=== PATIENT | female | born 1990 | race Caucasian/White ===

== ENCOUNTER 2021-10-08 08:39 | Emergency (ER) | payer OTHER ==
[~2021-10-08] VITALS: Ht 170.2 cm; Wt 79.8 kg
[2021-10-08 09:44] LABS: BASO # 0.02 K/mm3 (0.02-0.10); HEMATOCRIT 41.5 % (37.0-47.0); HEMOGLOBIN 14.4 g/dL (12.5-16.0); LYMPH# 0.79 K/mm3 (1.50-4.00); MEAN CELL VOLUME 87 fl (78-100); MEAN CORPUSCULAR HEMOGLOBIN 30 pg (27-31); MEAN CORPUSCULAR HGB CONC 35 g/dL (33-37); MONO # 0.77 K/mm3 (0.20-0.80); NEU # 6.43 K/mm3 (1.40-6.50); PLATELET COUNT 232 K/mm3 (130-400); RED BLOOD COUNT 4.77 M/mm3 (4.10-5.30); RED CELL DISTRIBUTION WIDTH 12.4 % (11.5-14.5)
[2021-10-08 09:48] LABS: ALBUMIN 4.3 g/dL (3.5-5.0)
[2021-10-08 09:49] LABS: POTASSIUM 4.5 mmol/L (3.5-5.1)
[2021-10-08 09:50] LABS: CALCIUM 9.2 mg/dL (8.3-10.5)
[2021-10-08 09:53] LABS: TOTAL BILIRUBIN 1.7 mg/dL (0.2-1.2)
[2021-10-08 09:58] LABS: MAGNESIUM 1.9 mg/dL (1.60-2.60)
[2021-10-08 10:31] LABS: D-DIMER 0.38 mg/L FEU (0.15-0.50)
[2021-10-08 11:07] VITALS: BP 113/69
== END 2021-10-08 11:08 | disposition home or self-care (01) ==
LOC: ED 08:39
PROVIDERS: Physician Assistant
DX: R00.2 Palpitations (principal)

== ENCOUNTER → 2021-10-10 | Outpatient (CLI) | payer OTHER ==
[2021-10-10 23:52] LABS: PTH,INTACT 83.5 pg/mL (6.6-88.9); T3 FREE 3.3 pg/mL (1.7-3.7)
[2021-10-15 11:15] LABS: THYROTROPIN RECEPTOR AB AMS
== END ==
LOC: LAB 10:57
PROVIDERS: Nurse Practitioner Primary Care
DX: E05.90 Thyrotoxicosis, unspecified without thyrotoxic crisis or storm (principal)

== ENCOUNTER → 2021-11-05 | Outpatient (CLI) | payer OTHER | LOC: RAD 13:26 | DX: E04.9 Nontoxic goiter, unspecified (principal); I49.9 Cardiac arrhythmia, unspecified ==